=== PATIENT | male | born 1955 | race African-American/Black ===

== ENCOUNTER 2018-11-18 09:20 | Emergency (ER) | payer OTHER ==
--- NOTE | 2018-11-18 09:38 | ER Document Report ---
ED Medical Screen (RME) - General Chief Complaint: Allergic Reaction Stated Complaint: ALLERGIC REACTION Time Seen by Provider: 11/18/18 09:37 Mode of Arrival: Ambulatory Information source: Patient TRAVEL OUTSIDE OF THE [place] IN LAST 30 DAYS: No - HPI Patient complains to provider of: allergic reaction? Onset: Yesterday - pt states he took prozac yesterday and started with perioral swelling. Denies SOB - Related Data Allergies/Adverse Reactions: fluoxetine Allergy (Verified 11/18/18 09:23) Physical Exam - Vital signs Vitals: Temp Pulse Resp BP Pulse Ox 98.8 F 51 L 18 162/100 H 97 11/18/18 09:26 11/18/18 09:26 11/18/18 09:26 11/18/18 09:26 11/18/18 09:26 Course - Vital Signs Vital signs: Temp Pulse Resp BP Pulse Ox 98.8 F 51 L 18 162/100 H 97 11/18/18 09:26 11/18/18 09:26 11/18/18 09:26 11/18/18 09:26 11/18/18 09:26
--- NOTE | 2018-11-18 09:59 | ER Document Report ---
ED General - General Chief Complaint: Allergic Reaction Stated Complaint: ALLERGIC REACTION Time Seen by Provider: 11/18/18 09:37 Primary Care Provider: [facility] [Provider Group] - Follow up in 3-5 days Mode of Arrival: Ambulatory Notes: Patient is a 63-year-old male with hypertension that presents to the emergency department for chief complaint of lip swelling. Patient reports that he noticed that his lips started swelling last night around 7 PM, seemingly little bit worse this morning, so he decided come to the emergency department. He is currently taking lisinopril 40 mg daily his last dose was yesterday morning. He did not take any today. He denies feeling short of breath having difficulty breathing, denies rashes or itching. He denies having any tongue swelling or difficulty swallowing. Denies fevers, chills, night sweats, lightheadedness, dizziness or chest pain. No other complaints at this time. Past Medical History: Hypertension Past Surgical History: Right arm surgery Social History: Admits to occasional alcohol use, denies tobacco or illicit drug use. Family History: Reviewed and noncontributory for presenting illness Allergies: Reviewed, see documented allergy list. REVIEW OF SYSTEMS: Other than noted above, the 12 point review of systems was reviewed with the patient and were negative, all pertinent findings are included in the HPI. PHYSICAL EXAMINATION: Vital signs reviewed, nursing noted reviewed. GENERAL: Well-appearing, well-nourished and in no acute distress. HEAD: Atraumatic, normocephalic. EYES: Eyes appear normal, extraocular movements intact, sclera anicteric, conjunctiva are normal. ENT: nares patent, oropharynx clear without exudates. Moist mucous membranes. Upper and lower angioedema of the lips, the tongue does not appear to be involved, the posterior pharynx is easily visualized, the uvula is normal in size and midline. NECK: Normal range of motion, supple without lymphadenopathy LUNGS: Breath sounds clear to auscultation bilaterally and equal. No wheezes rales or rhonchi. HEART: Regular rate and rhythm without murmurs ABDOMEN: Soft, nontender, normoactive bowel sounds. No rebound, guarding, or rigidity. No masses appreciated. EXTREMITIES: Nontender, good range of motion, no pitting or edema. NEUROLOGICAL: No focal neurological deficits. Moves all extremities spontaneously Motor and sensory grossly intact on exam. PSYCH: Normal mood, normal affect. SKIN: Warm, Dry, normal turgor, no rashes or lesions noted on exposed skin TRAVEL OUTSIDE OF THE [place] IN LAST 30 DAYS: No - Related Data Allergies/Adverse Reactions: fluoxetine Allergy (Verified 11/18/18 09:23) Past Medical History - General Information source: Patient - Social History Smoking Status: Current Some Day Smoker Chew tobacco use (# tins/day): No Frequency of alcohol use: None Drug Abuse: None Family History: Reviewed & Not Pertinent Patient has suicidal ideation: No Patient has homicidal ideation: No - Past Medical History Cardiac Medical History: Reports: Hx Hypertension Renal/ Medical History: Denies: Hx Peritoneal Dialysis Psychiatric Medical History: Reports: Hx Depression - ANXIETY Physical Exam - Vital signs Vitals: Temp Pulse Resp BP Pulse Ox 98.8 F 51 L 18 162/100 H 97 11/18/18 09:26 11/18/18 09:26 11/18/18 09:26 11/18/18 09:26 11/18/18 09:26 Course - Re-evaluation Re-evalutation: Patient seen and examined vital signs reviewed. Patient was monitored in the emergency department for any worsening of his angioedema, it seems to only involve the lips at this time, and has not progressed since last night, to involve the tongue or posterior pharynx, he has no signs of respiratory distress or airway compromise, no indication for FFP at this time, advised discontinuing lisinopril indefinitely and to follow-up with his primary care regarding his anti-hypertensive medications. I did rashawn specifically on the bottle for the patient to do not take the medication. The patient was re-evaluated and was stable, no progression of angioedema Evaluation was most consistent with angioedema as a result of lisinopril. Plan of care was discussed with the patient at this point, after careful consideration I feel that that patient can be discharged from the emergency department, the patient was educated treatments and reasons to return to the emergency department based on their presumed diagnosis as noted above, they were advised to followup with a primary care physician in 2-3 days. Patient was agreeable to plan of care. *Note is created using voice recognition software and may contain spelling, syntax or grammatical errors. - Vital Signs Vital signs: Temp Pulse Resp BP Pulse Ox 98.8 F 51 L 12 142/95 H 98 11/18/18 09:26 11/18/18 09:26 11/18/18 11:02 11/18/18 11:02 11/18/18 11:02 Discharge - Discharge Clinical Impression: Angioedema Condition: Stable Disposition: HOME, SELF-CARE Instructions: Angioedema (OM) Additional Instructions: Please discontinue taking the lisinopril 40 mg tablet your previously prescribed, and please follow-up with the [place] clinic to discuss blood pressure medications going forward. Referrals: [facility] [Provider Group] - Follow up in 3-5 days
[2018-11-18 11:10] VITALS: BP 142/95
== END 2018-11-18 11:11 | disposition home or self-care (01) ==
LOC: ER 09:20
DX: T78.3XXA Angioneurotic edema, initial encounter (principal); I10 Essential (primary) hypertension; Z79.899 Other long term (current) drug therapy; Z88.8 Allergy status to other drugs, medicaments and biological substances
CPT/HCPCS: 99283